=== PATIENT | female | born 1960 | race Caucasian/White ===

== ENCOUNTER 2017-05-13 08:10 | Outpatient (CLI) | payer OTHER ==
[2016-01-16 11:16] VITALS: BP 112/52
[2017-05-13 09:03] LABS: eGFR (African) > 60; eGFR (Non-African) > 60
--- NOTE | 2017-05-13 11:09 | Diagnostic Imaging Report ---
NANDO SHAHID [facility] [address] [facility] [address] [address] Report Submission Date: May 13, 2017 10:11:11 AM GOLF COURSE MANAGER Patient Study Name: TREY BENÍTEZ Date: May 13, 2017 8:32:24 AM GOLF COURSE MANAGER Modality Type: CR Gender: F Description: LOWER EXTREMITY : 62 Institution: [facility] Physician: NANDO SHAHID Examination: Plain film knee History: Knee discomfort Findings: Single view of the knees obtained standing demonstrates tibial spine spurring and medial joint space narrowing. No fracture. No dislocation. Impression: Moderate degenerative changes. No evidence for fracture. Electronically signed on May 13, 2017 10:11:11 AM GOLF COURSE MANAGER by: Lg GONZALEZ
--- NOTE | 2017-05-13 11:11 | Diagnostic Imaging Report ---
NANDO SHAHID [facility] [address] [facility] [address] [address] Report Submission Date: May 13, 2017 10:12:14 AM CARD DEALER Patient Study Name: TREY BENÍTEZ Date: May 13, 2017 8:35:51 AM CARD DEALER Modality Type: CR Gender: F Description: LOWER EXTREMITY : 62 Institution: [facility] Physician: NANDO SHAHID Examination: Plain film knee History: Knee discomfort Findings: Two view of the right knee obtained standing demonstrates tibial spine spurring and medial joint space narrowing. No fracture. No dislocation. No joint effusion Impression: Moderate degenerative changes. No evidence for fracture. Electronically signed on May 13, 2017 10:12:14 AM CARD DEALER by: Lg GONZALEZ
== END 2017-05-13 08:11 ==
LOC: LAB 08:10
PROVIDERS: ATTEND Family Medicine
DX: M25.561 Pain in right knee (principal); Z00.00 Encounter for general adult medical examination without abnormal findings; Z13.1 Encounter for screening for diabetes mellitus
CPT/HCPCS: 36415; 73560; 73565; 80053; 80061; 83036

== ENCOUNTER 2018-05-10 09:00 | Outpatient (CLI) | payer OTHER ==
[2016-01-16 11:16] VITALS: BP 112/52
[2018-05-10 10:04] LABS: MEAN CORPUSCULAR HEMOGLOBIN 28.9 pg (28.0-34.0)
[2018-05-10 10:19] LABS: eGFR (Non-African) > 60
--- NOTE | 2018-05-10 12:14 | Diagnostic Imaging Report ---
NANDO SHAHID [facility] [address] [facility] [address] [address] Report Submission Date: May 10, 2018 11:47:55 AM OPTICAL BRIGHTENER MAKER HELPER Patient Study Name: TREY BENÍTEZ Date: May 10, 2018 9:53:05 AM OPTICAL BRIGHTENER MAKER HELPER Modality Type: US\OT Gender: F Description: : 62 Institution: [facility] Physician: NANDO SHAHID Examination: Ultrasound arterial History: LOWER EXT SWELLING Comparison exams: None available Findings: Sonographic evaluation of the lower extremity arterial system from the groin to the distal extremities bilaterally demonstrates diminished waveforms, left greater than right. Right ankle/brachial index of 1.09. Left ankle/brachial index of 0.13 Impression: Left extremity with significant reduction to hemodynamic flow. Recommend obtaining lower extremity runoff examination to further evaluate. Electronically signed on May 10, 2018 11:47:55 AM OPTICAL BRIGHTENER MAKER HELPER by: Lg GONZALEZ
--- NOTE | 2018-05-10 12:14 | Diagnostic Imaging Report ---
NANDO SHAHID [facility] [address] [facility] [address] [address] Report Submission Date: May 10, 2018 11:20:51 AM FUR STORAGE CLERK Patient Study Name: TREY BENÍTEZ Date: May 10, 2018 9:24:04 AM FUR STORAGE CLERK Modality Type: US Gender: F Description: [facility] : 62 Institution: [facility] Physician: NANDO SHAHID Ultrasound venous Doppler left lower extremity History: Leg swelling Duplex and color flow imaging was performed through the left lower extremity femoral popliteal venous system revealing normal compression and normal augmentation throughout. No filling defects are identified. Soft tissue edema is noted within the calf. Impression: No evidence for deep venous thrombosis. Electronically signed on May 10, 2018 11:20:51 AM FUR STORAGE CLERK by: Rosalee GONZALEZ
== END 2018-05-10 09:03 ==
LOC: LAB 09:00
PROVIDERS: ATTEND Family Medicine
DX: M79.89 Other specified soft tissue disorders (principal); R93.6 Abnormal findings on diagnostic imaging of limbs; R09.89 Other specified symptoms and signs involving the circulatory and respiratory systems; E03.9 Hypothyroidism, unspecified
CPT/HCPCS: 36415; 80053; 83880; 84443; 85027; 93923; 93971